=== PATIENT | female | born 1940 | race African-American/Black ===

== ENCOUNTER 2020-07-11 12:36 | Emergency (ER) | payer OTHER ==
[~2020-07-11] VITALS: Ht 160 cm; Wt 104.3 kg
[2020-07-11 12:49] VITALS: BP 123/76
--- NOTE | 2020-07-11 12:50 | NUR ---
Brought in by grandson for cough x 4 weeks. Patient reports productive cough. Pt prescribed 5 day antibiotics (unknown) and Benzonatate by PCP 1.5 weeks ago; completed ABX tx on 07/05/2020 and symptoms persisted. Pt normally on home O2 2.5LPM via N/C. Patient states compliant with medication regime. Pt reports intermittent headaches x 2-3 weeks. Denies N/V/D, fever/chills, chest pain, abdominal pain, dizziness. PMH: Stroke, DM, Covid (2019), HTN Meds: Lasix, Glipizide, Metformin, Lisinopril, Losartan NKA Sx: Denies
--- NOTE | 2020-07-11 13:20 | NUR ---
Patient assisted to RAD via wheelchair.
[2020-07-11] MEDS ORDERED: predniSONE 20 MG TAB PO ONE (16:15)
--- NOTE | 2020-07-11 17:11 | NUR ---
ETTA SWAB DONE. WALKED TO LAB.
[2020-07-11] MEDS ORDERED: PRED20TA5 PO (17:50)
[2020-07-11] MEDS ORDERED: ROBAC PO (17:50)
[2020-07-11 18:05] VITALS: BP 121/71
--- NOTE | 2020-07-11 18:06 | NUR ---
Patient discharged with v/s stable. Written and verbal after care instructions given and explained. Patient alert, oriented and verbalized understanding of instructions. Ambulatory with steady gait. All questions addressed prior to discharge. ID band removed. Patient advised to follow up with PMD. Rx of PREDNISONE AND GUAIFENESIN-CODEINE given. Patient educated on indication of medication including possible reaction and side effects. Opportunity to ask questions provided and answered.
== END 2020-07-11 18:06 | disposition home or self-care (01) ==
LOC: MED 12:36
DX: J20.9 Acute bronchitis, unspecified (principal); Z20.822 Contact with and (suspected) exposure to COVID-19; E11.9 Type 2 diabetes mellitus without complications; K21.9 Gastro-esophageal reflux disease without esophagitis; I10 Essential (primary) hypertension; Z79.899 Other long term (current) drug therapy
CPT/HCPCS: 71045; 87426; 99284; J7512

== ENCOUNTER 2020-11-22 11:45 | Emergency (ER) | payer OTHER, SELFPAY ==
[~2020-11-22] VITALS: Ht 162.6 cm; Wt 77.1 kg
[~2020-11-22 11:45] MED LIST: PRED20TA5 PO; ROBAC PO
[2020-11-22 12:04] VITALS: BP 149/75
--- NOTE | 2020-11-22 13:01 | NUR ---
maria esther swab done. walked to lab by marcy piña
--- NOTE | 2020-11-22 13:30 | NUR ---
PT W/C ASSISTED TO BED 2.
--- NOTE | 2020-11-22 13:37 | NUR ---
DR. WATERS AT PT BEDSIDE FOR FURTHER EVALUATION.
[2020-11-22] MEDS ORDERED: FUROSEMIDE 40 MG/4 ML VIAL IVP ONE (13:40)
[2020-11-22] MEDS ORDERED: ASPIRIN 325 MG TAB PO ONE (13:40)
--- NOTE | 2020-11-22 13:40 | NUR ---
80 y/o female c/o worsening cough, congestion x 2 months. +SOB. Pt is on 3L 02 from home. Spo2 at 98%. Denies n/v, denies fever/chills. Lung sounds are diminished bilateral, no signs of retractions at this time. PMH: Chronic bronchitis, HTN, DM NKA
[2020-11-22] MEDS ORDERED: BENZONATATE 100 MG CAPLF PO SCH (13:45)
[2020-11-22] MEDS ORDERED: predniSONE 20 MG TAB PO ONE (13:45)
--- NOTE | 2020-11-22 14:30 | NUR ---
IV STARTED TO RIGHT HAND 22G, GOOD BLOOD RETURN, COLLECTED BLOOD GAVE TO CD TECHNICIAN AT PT BEDSIDE.
--- NOTE | 2020-11-22 14:37 | NUR ---
PT REPOSITIONED WITH HOB LOWERED ON LEFT SIDE FOR COMFORT, VSS, WILL CONTINUE TO MONITOR.
--- NOTE | 2020-11-22 15:20 | NUR ---
PT ASSISTED ON TO BEDPAN. REPOSTIONED
[2020-11-22 15:48] LABS: ANION GAP 12.3 (8-16); CARBON DIOXIDE 27.9 mmol/L (21-32); CHLORIDE 110 mmol/L (98-107); CREATININE 0.7 mg/dL (0.6-1.3); GLUCOSE 78 mg/dL (74-106); POTASSIUM 4.2 mmol/L (3.5-5.1); SODIUM SERUM 146 mmol/L (136-145); UREA NITROGEN, BLOOD 15 mg/dL (7-18)
[2020-11-22 15:54] LABS: BASOPHILS % (AUTO) 0.6 % (0.0-2.0); EOSINOPHILS % (AUTO) 0.6 % (0.0-4.0); HEMATOCRIT 36.4 % (36-48); HEMOGLOBIN 11.5 g/dL (12.0-16.0); LYMPHOCYTES % (AUTO) 12.9 % (20.5-51.1); MEAN CORPUSCULAR HEMOGLOBIN 27 pg (27-31); MEAN CORPUSCULAR HGB CONC 32 g/dL (33-37); MEAN CORPUSCULAR VOLUME 86.4 fL (80-94); MONOCYTES # (AUTO) 0.4 K/uL (0.8-1.0); MONOCYTES % (AUTO) 4.7 % (1.7-9.3); NEUTROPHILS # (AUTO) 6.3 K/uL (1.8-7.7); NEUTROPHILS % (AUTO) 81.2 % (42.2-75.2); PLATELET COUNT (AUTO) 137 K/uL (140-450); RED BLOOD CELL COUNT(AUTO) 4.22 MIL/uL (4.20-5.40); RED CELL DISTRIBUTION WIDTH 18.8 % (11.6-13.7); WHITE BLOOD COUNT (AUTO) 7.7 K/uL (4.8-10.8)
--- NOTE | 2020-11-22 16:07 | NUR ---
DR. WATERS AT PT BEDSIDE FOR FURTHER EVALUATION.
--- NOTE | 2020-11-22 16:49 | NUR ---
DAUGHTER HIPOLITO MATUTE [phone]
[2020-11-22] MEDS ORDERED: FURO-572 PO (16:57)
[2020-11-22] MEDS ORDERED: PROM118S5 PO (16:57)
[2020-11-22] MEDS ORDERED: PRED20TA6 PO (16:57)
--- NOTE | 2020-11-22 17:01 | NUR ---
SPOKE WITH PT DAUGHTER HIPOLITO FOR PT UPDATES.
[2020-11-22 17:24] VITALS: BP 137/81
--- NOTE | 2020-11-22 17:25 | NUR ---
Patient discharged with v/s stable. Written and verbal after care instructions given PULMONARY EDEMA AND CHRONIC BRONCHITIS and explained. Patient alert, oriented and verbalized understanding of instructions. Wheel Chair Assisted with to car. All questions addressed prior to discharge. ID band removed. Patient advised to follow up with PMD. Rx of LASIX 20MG PO DAILY FOR 5DAYS, PROMETHAZINE 5ML PO Q6H PRN COUGH, AND PREDNISONE 20MG PO BID FOR 5DAYS given. Patient educated on indication of medication including possible reaction and side effects. Opportunity to ask questions provided and answered.
== END 2020-11-22 17:25 | disposition home or self-care (01) ==
LOC: MED 11:45
DX: J81.0 Acute pulmonary edema (principal); J20.9 Acute bronchitis, unspecified; E11.9 Type 2 diabetes mellitus without complications; I10 Essential (primary) hypertension; E78.00 Pure hypercholesterolemia, unspecified; Z20.822 Contact with and (suspected) exposure to COVID-19
CPT/HCPCS: 36415; 71045; 80048; 83880; 84484; 85025; 87426; 96374; 99285; J1940; J7512

== ENCOUNTER 2023-06-12 07:45 | Emergency (ER) | payer OTHER ==
[~2023-06-12] VITALS: Ht 162.6 cm; Wt 113.4 kg
[~2023-06-12 07:45] MED LIST changes: +FURO-572 PO; +PRED20TA6 PO; +PROM118S5 PO
[2023-06-12 07:49] VITALS: BP 143/74; PULSE 93; RESP 18; TEMP 98.6; O2SAT 94
[2023-06-12 09:00] VITALS: BP 142/75; PULSE 88; RESP 16; TEMP 98.6; O2SAT 99
== END 2023-06-12 09:00 | disposition home or self-care (01) ==
LOC: MED 07:45
DX: T17.990A Other foreign object in respiratory tract, part unspecified in causing asphyxiation, initial encounter (principal); I10 Essential (primary) hypertension; E11.9 Type 2 diabetes mellitus without complications; I63.9 Cerebral infarction, unspecified; Z79.899 Other long term (current) drug therapy; W44.F9XA Other object of natural or organic material, entering into or through a natural orifice, initial encounter; Y93.89 Activity, other specified; Y92.89 Other specified places as the place of occurrence of the external cause; Y99.8 Other external cause status
CPT/HCPCS: 99281